=== PATIENT | male | born 1930 | race Caucasian/White ===

== ENCOUNTER 2018-05-14 21:39 | Emergency (ER) | payer OTHER ==
--- NOTE | 2018-05-14 22:02 | EDPHY ---
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 Patient reports that he feels no worse shortness of breath than at baseline. No prior history of congestive heart failure. Takes chronic prednisone daily. Denies trauma/warmth/discharge/pain. Patient is ambulatory without any deficits. Does complain of some tingling in his right foot. No recent long distance travel. Lives a relatively sedentary lifestyle. Uses a cane to aid ambulation. Modifying Factors: None Comment: ROS: A comprehensive 10 system review of systems is otherwise negative aside from elements mentioned in the history of present illness. MEDICAL/SURGICAL/SOCIAL HISTORY: Medical history: asthma, COPD, KELLIE,testicle removal, bipolar, seizure, pneumonia Surgical history: Denies Social history: Former smoker. . CONSTITUTIONAL: Extremely polite and cooperative elderly white male, wearing nasal cannula, awake and alert, no obvious distress HEENT: Atraumatic and normocephalic. NECK: supple, no JVD Cardiovascular: Normal S1/S2, regular rate, regular rhythm, with systolic murmur PULMONARY/CHEST: Symmetrical and nontender. Clear to auscultation bilaterally. Good air movement. No accessory muscle usage. ABDOMEN: Soft, nondistended, nontender. EXTREMITIES: 2/2 pulses, strength 5/5, right lower extremity is twice the size of the left lower extremity. No calf tenderness. Negative Homans sign. 2+ pitting edema up to mid tibia. Bilateral lower extremity moderate varicose veins. good light touch sensation. no deformities, no clubbing, no cyanosis or edema. NEUROLOGICAL: no focal neuro deficits. GCS 15. Light touch sensation intact. SKIN: Warm and dry, pallor, no erythema. no rash. Good capillary refill. Source: Patient Exam Limitations: No limitations - Personal History Current Tetanus/Diphtheria Vaccine: Yes Current Tetanus Diphtheria and Acellular Pertussis (TDAP): Yes - Medical/Surgical History Hx Asthma: Yes Hx Chronic Respiratory Disease: Yes Hx Diabetes: No Hx Cardiac Disease: No Hx Renal Disease: No Hx Cirrhosis: No Hx Alcoholism: No Hx HIV/AIDS: No Hx Splenectomy or Spleen Trauma: No Other PMH: asthma, COPD, KELLIE,testicle removal, bipolar, seizure, pneumonia, - Social History Smoking Status: Former smoker Constitutional: Initial Vital Signs Temperature (C) 36.7 C 05/14/18 21:51 Heart Rate 104 H 05/14/18 21:51 Respiratory Rate 18 05/14/18 21:51 Blood Pressure 149/82 H 05/14/18 21:51 O2 Sat (%) 85 L 05/14/18 21:51 O2 Delivery Mode Room Air,Nasal Cannula O2 (L/minute) 4 Allergies/Adverse Reactions: No Known Allergies Allergy (Verified 05/14/18 21:55) Home Medications: Medication Instructions Recorded Albuterol 11/17/15 Ceftin 11/17/15 Fluticasone 11/17/15 Hydrocodone 11/17/15 Symbicort 11/17/15 predniSONE 11/17/15 Medical Decision Making - Diagnostics Imaging Results: Imaging Impressions Chest X-Ray 05/14/18 22:03 Impression: 1. Moderate cardiomegaly. No failure or effusion. 2. Chronic airways disease and bullous formation. No recurrent pneumothorax. Extremity Venous Study 05/14/18 22:03 Impression: Negative. No deep venous thrombosis in the right or left lower extremity. Findings discussed with Emergency Department physician automobile mechanic assistant, Katiuska Calix at 05/14/2018 23:03. ED Course/Re-evaluation: Vital signs reviewed upon arrival in show 85% on room air and mild tachycardia. Laboratory studies, chest x-ray, bilateral lower extremity ultrasound ordered CXR my read shows chronic hyperventilation, bleb disease. + cardiomegaly. no signs of CHF 2240: Labs reviewed. No signs of leukocytosis/anemia/platelet dysfunction/HALINA/ electrolyte imbalance/CHF. 2303: Called by radiologist, Dr. Bell, who advised bilateral lower extremity ultrasound is negative for deep venous thrombosis. I suspect peripheral vascular disease. Will advise elevation and compression stockings placed on patient in the emergency room with interventional radiology/vascular follow-up. No signs of neurovascular compromise/tenting of skin/compartment syndrome/ extremities and joints examined above and below area of concern and are neurovascularly intact. This patient was seen under the supervision of my secondary supervising physician. I evaluated care for this patient independently. Discussed this patient with Dr. Whitten. Differential Diagnosis: Leg swelling including but not limited to hypoalbuminemia, congestive heart failure, cor pulmonale, chronic venous stasis and DVT. - Data Points Laboratory Results: Laboratory Results 05/14/18 22:15 05/14/18 22:15 05/14/18 05/14/18 22:15 22:15 WBC 6.46 10^3/uL 10^3/uL (3.80-9.50) RBC 4.74 10^6/uL 10^6/uL (4.40-6.38) Hgb 14.9 g/dL g/dL (13.7-17.5) Hct 44.9 % % (40.0-51.0) MCV 94.7 fL fL (81.5-99.8) MCH 31.4 pg pg (27.9-34.1) MCHC 33.2 g/dL g/dL (32.4-36.7) RDW 14.5 % % (11.5-15.2) Plt Count 191 10^3/uL 10^3/uL (150-400) MPV 9.3 fL fL (8.7-11.7) Neut % (Auto) 68.8 % % (39.3-74.2) Lymph % (Auto) 17.5 % % (15.0-45.0) [place] % (Auto) 10.2 % % (4.5-13.0) Eos % (Auto) 1.9 % % (0.6-7.6) Baso % (Auto) 0.8 % % (0.3-1.7) Nucleat RBC Rel Count 0.0 % % (0.0-0.2) Absolute Neuts (auto) 4.45 10^3/uL 10^3/uL (1.70-6.50) Absolute Lymphs (auto) 1.13 10^3/uL 10^3/uL (1.00-3.00) Absolute Monos (auto) 0.66 10^3/uL 10^3/uL (0.30-0.80) Absolute Eos (auto) 0.12 10^3/uL 10^3/uL (0.03-0.40) Absolute Basos (auto) 0.05 10^3/uL 10^3/uL (0.02-0.10) Absolute Nucleated RBC 0.00 10^3/uL 10^3/uL (0-0.01) Immature Gran % 0.8 % % (0.0-1.1) Immature Gran # 0.05 10^3/uL 10^3/uL (0.00-0.10) Sodium 134 mEq/L L mEq/L (135-145) Potassium 3.8 mEq/L mEq/L (3.3-5.0) Chloride 101 mEq/L mEq/L (97-110) Carbon Dioxide 27 mEq/l mEq/l (22-31) Anion Gap 6 mEq/L L mEq/L (8-16) BUN 25 mg/dL H mg/dL (7-23) Creatinine 0.8 mg/dL mg/dL (0.7-1.3) Estimated GFR > 60 Glucose 110 mg/dL H mg/dL (70-100) Calcium 9.1 mg/dL mg/dL (8.5-10.4) NT-Pro-B Natriuret Pep 384 pg/mL pg/mL (0-450) Departure - Departure Disposition: Home, Routine, Self-Care Clinical Impression: Venous insufficiency of both lower extremities 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 Elevate your legs and wear compression stockings to decrease swelling. Follow-up with PCP next week for evaluation. Referrals: LEODAN JAIMES [Other] - 2-3 days without fail
[2018-05-14 22:31] LABS: PLATELET COUNT 191 10^3/uL (150-400)
[2018-05-14 23:30] VITALS: BP 137/81
== END 2018-05-14 23:28 | disposition home or self-care (01) ==
DX: I83.893 Varicose veins of bilateral lower extremities with other complications (principal); I87.2 Venous insufficiency (chronic) (peripheral); J44.9 Chronic obstructive pulmonary disease, unspecified; Z99.81 Dependence on supplemental oxygen; Z79.52 Long term (current) use of systemic steroids; F31.9 Bipolar disorder, unspecified